=== PATIENT | female | born 1985 | race Caucasian/White ===

== ENCOUNTER 2018-07-16 07:47 | Emergency (ER) | payer OTHER ==
[2018-07-16 08:11] VITALS: BP 148/80; PULSE 75; RESP 18; TEMP 98.4; O2SAT 100
--- NOTE | 2018-07-16 08:41 | ED PDOC ---
Arrival/HPI - General Chief Complaint: ENT Problem Time Seen by Provider: 07/16/18 08:00 - History of Present Illness Narrative History of Present Illness (Text): 32 y/o F c PMHx gestational DM p/w R ear pain x 2 weeks. Pain is intermittent, sharp, radiates to R side of face, resolves with ibuprofen. Occurred 2 weeks ago, 3 days ago, and last night. Worst was 3 days ago. Denies fever, stiff neck, ear discharge. Reports R ear popping and dulled hearing. Past Medical History - Psychiatric Hx Substance Use: No - Surgical History Hx Section: Yes (x 3) - Anesthesia Hx Anesthesia: Yes Hx Anesthesia Reactions: No Hx Malignant Hyperthermia: No Family/Social History Family/Social History: No Known Family HX Smoking Status: Never Smoked Hx Alcohol Use: No Hx Substance Use: No Allergies/Home Meds Allergies/Adverse Reactions: Allergies No Known Allergies Allergy (Verified 07/16/18 07:55) Review of Systems - Physician Review All systems were reviewed & negative as marked: Yes - Review of Systems Constitutional: absent: Fevers Respiratory: absent: SOB Physical Exam - Physical Exam Narrative Physical Exam (Text): Gen: NAD Head: NC/AT Eyes: PERRL ENT: MMM. R TM obscured by ear wax with some canal edema. No external ear swelling. No mastoid tenderness. L TM normal. No dental tenderness. Uvula midline. No facial edema Neck: No nuchal rigidity CV: regular rate Extremities: No edema Neuro: Alert Skin: No rash. Vital Signs Temp Pulse Resp BP Pulse Ox 07/16/18 07:47 98.4 F 75 18 148/80 100 Medical Decision Making ED Course and Treatment: F/U ENT, return to ED for worsening pain, fever, swelling, stiff neck, or any other problem. Disposition/Present on Arrival - Present on Arrival Any Indicators Present on Arrival: No History of DVT/PE: No History of Uncontrolled Diabetes: No Urinary Catheter: No History of Decub. Ulcer: No History Surgical Site Infection Following: None - Disposition Have Diagnosis and Disposition been Completed?: Yes Diagnosis: Ear pain Disposition: HOME/ ROUTINE Disposition Time: 08:42 Patient Plan: Discharge Condition: STABLE Discharge Instructions (ExitCare): Ear Infections (Otitis Media) Prescriptions: Amoxicillin 875 mg PO BID #14 tablet Ofloxacin Otic 0.3% [Floxin 0.3% Otic Soln] 5 drop AD BID 7 Days #1 bottle Referrals: Hamilton Liang DO [Staff Provider] - Follow up with primary
== END 2018-07-16 09:11 | disposition home or self-care (01) ==
LOC: ED 07:47
DX: H92.01 Otalgia, right ear (principal)